=== PATIENT | male | born 1990 ===

== ENCOUNTER 2017-12-28 14:35 | Emergency (ER) | payer SELFPAY ==
[2017-12-28 14:45] VITALS: BP 116/73; PULSE 84; RESP 16; TEMP 96.9; O2SAT 99
[2017-12-28] MEDS ORDERED: Sodium Chloride 0.9% 1,000 ML IV STA ×2 (15:09→16:23)
[2017-12-28 15:42] LABS: ALB/GLOB RATIO 1.6 (1.0-2.1); ALBUMIN 5.3 g/dL (3.5-5.0); ALT/SGPT 30 U/L (21-72); AST/SGOT 47 U/L (17-59); BLOOD UREA NITROGEN 21 mg/dl (9-20); CALCIUM 10.3 mg/dL (8.4-10.2); GFR AFRICAN-AMERICAN > 60; GFR NON-AFRICAN AMERICAN > 60; LIPASE 54 U/L (23-300)
[2017-12-28 15:44] LABS: BASO # 0.1 K/uL (0.0-0.2); BASO % 0.4 % (0.0-2.0); EOS # 0.1 K/uL (0.0-0.7); EOS % 0.5 % (0.0-4.0); HEMOGLOBIN 15.4 g/dL (12.0-18.0); LYMPH # 1.9 K/uL (1.0-4.3); LYMPH % 15.5 % (20.0-40.0); MEAN CELL VOLUME 92.6 fl (80.0-94.0); MEAN CORPUSCULAR HEMOGLOBIN 30.7 pg (27.0-31.0); MEAN CORPUSCULAR HGB CONC 33.1 g/dL (33.0-37.0); MEAN PLATELET VOLUME 8.6 fl (7.2-11.7); MONO # 0.4 K/uL (0.0-0.8); MONO % 3.6 % (0.0-10.0); NEUT # 9.7 K/uL (1.8-7.0); RBC 5.01 Mil/uL (4.40-5.90); RED CELL DISTRIBUTION WIDTH 13.5 % (11.5-14.5); WHITE BLOOD COUNT 12.1 K/uL (4.8-10.8)
--- NOTE | 2017-12-28 16:19 | ED PDOC ---
HPI: Abdomen Time Seen by Provider: 12/28/17 14:56 Chief Complaint (Nursing): Abdominal Pain Chief Complaint (Provider): abdominal pain History Per: Patient History/Exam Limitations: no limitations Onset/Duration Of Symptoms: Days (x1) Current Symptoms Are (Timing): Still Present Location Of Pain/Discomfort: Epigastric Associated Symptoms: Nausea, Vomiting. denies: Fever, Chills, Diarrhea, Urinary Symptoms Additional Complaint(s): Ifeanyi Bello is a 27 year old male, with no significant past medical history, who presents to the emergency department complaining of epigastric pain associated with nausea and vomiting onset since last night. Patient admits to drinking alcohol and states symptoms began after drinking. He denies any fever, chills, diarrhea, urinary symptoms or abdominal surgeries. No further medical complaints. PMD: None provided. Past Medical History Reviewed: Historical Data, Nursing Documentation, Vital Signs Vital Signs: Last Vital Signs Temp 96.9 F L 12/28/17 14:43 Pulse 84 12/28/17 14:43 Resp 16 12/28/17 14:43 BP 116/73 12/28/17 14:43 Pulse Ox 99 12/28/17 19:11 - Medical History PMH: No Chronic Diseases - Surgical History Surgical History: No Surg Hx - Family History Family History: States: Unknown Family Hx - Social History Current smoker - smoking cessation education provided: Yes (Current some days smoker) Drugs: Cannabis - Home Medications Home Medications: Ambulatory Orders Medication Instructions Recorded Famotidine [Pepcid] 40 mg PO DAILY #20 tablet 12/28/17 Ondansetron ODT [Zofran ODT] 4 mg PO DAILY PRN #20 odt 12/28/17 - Allergies Allergies/Adverse Reactions: Allergies Allergy/AdvReac Type Severity Reaction Status Date / Time No Known Allergies Allergy Verified 12/28/17 14:43 Review of Systems ROS Statement: Except As Marked, All Systems Reviewed And Found Negative Constitutional: Negative for: Fever, Chills Gastrointestinal: Positive for: Nausea, Vomiting, Abdominal Pain (epigastric). Negative for: Diarrhea Genitourinary Male: Negative for: Dysuria, Frequency, Incontinence Physical Exam - Reviewed Nursing Documentation Reviewed: Yes Vital Signs Reviewed: Yes - Physical Exam Comments: GENERAL APPEARANCE: Patient is awake, alert, oriented x 3, in mild painful distress. SKIN: Warm, dry; (-) cyanosis. EYES: (-) conjunctival pallor, (-) scleral icterus. ENMT: Mucous membranes moist. NECK: (-) tenderness, (-) stiffness, (-) lymphadenopathy. CHEST AND RESPIRATORY: (-) rales, (-) rhonchi, (-) wheezes; breath sounds equal bilaterally. HEART AND CARDIOVASCULAR: (-) irregularity; (-) murmur, (-) gallop. ABDOMEN AND GI: (-) distention. Bowel sounds active; (+) Upper abdominal tenderness, (-) guarding, (-) rebound, (-) palpable masses, (-) CVA tenderness. EXTREMITIES: (-) deformity, (-) edema, (+) distal pulses. NEURO AND PSYCH: Mental status as above; (-) focal findings. - Laboratory Results Result Diagrams: 12/28/17 15:00 12/28/17 15:00 - ECG O2 Sat by Pulse Oximetry: 99 (RA) Pulse Ox Interpretation: Normal Medical Decision Making Medical Decision Making: Time: 14:56 Initial Impression: Abdominal pain Initial Plan: --Drug screen, urine --Pepcid 20 mg IVP --Sodium Chloride 1,000 ml IV 1,000 mls/hr x2 --Zofran Inj 4 mg IVP --Reevaluation On re-evaluation, patient reports significant improvement of symptoms, denies any abdominal pain or nausea. On exam, patient is more AAOx3, in no acute distress. Abdomen soft, non-tender, no guarding or rebound. VSS, stable for discharge. Lab results reviewed. Diagnostic results d/w the patient in great detail. Diagnosis of alcoholic gastritis d/w the patient. Based on history, exam and diagnostic results, plan will be for outpatient follow up. Patient instructed to follow-up with the clinic in 1-2 days without fail. Advised to take medication as prescribed. Return to the emergency room at any time for any new or worsening symptoms. Patient states he fully agrees with and understands discharge instructions. States that he agrees with the plan and disposition. Verbalized and repeated discharge instructions and plan. I have given the patient opportunity to ask any additional questions. ----- Scribe Attestation: Documented by Juan Carlos Schneider, acting as a scribe for Brandy aWrren PA-C. Provider Scribe Attestation: All medical record entries made by the Scribe were at my direction and personally dictated by me. I have reviewed the chart and agree that the record accurately reflects my personal performance of the history, physical exam, medical decision making, and the department course for this patient. I have also personally directed, reviewed, and agree with the discharge instructions and disposition. Disposition - Clinical Impression Clinical Impression: Alcoholic gastritis - Patient ED Disposition Is Patient to be Admitted: No Counseled Patient/Family Regarding: Studies Performed, Diagnosis, Need For Followup, Rx Given - Disposition Referrals: [facility] [Outside] Disposition: Routine/Home Disposition Time: 19:00 Condition: STABLE Additional Instructions: Thank you for letting us take care of you today. You were treated for alcoholic gastritis. The emergency medical care you received today was directed towards the acute presenting symptoms. If you were prescribed any medication, please fill it and give as directed. It may take several days for your symptoms to resolve. Return to the Emergency Department at any time if symptoms worsen, do not improve, or if any other problems arise. Please call one of the physicians/clinics you have been referred to that are listed on the Patient Visit Information form that is included in your discharge packet. Bring any paperwork you were given at discharge with you along with any medications to your follow up visit. Our treatment cannot replace ongoing medical care by a primary care provider (PCP) outside of the emergency department. [facility]. Prescriptions: Famotidine [Pepcid] 40 mg PO DAILY #20 tablet Ondansetron ODT [Zofran ODT] 4 mg PO DAILY PRN #20 odt PRN Reason: Nausea/Vomiting Instructions: Gastritis (DC) Forms: [employer] (Frisian)
[2017-12-28 16:50] LABS: BARBITURATES, UR NEGATIVE (NEGATIVE); BENZODIAZEPINES, UR NEGATIVE (NEGATIVE); OPIATES, UR NEGATIVE (NEGATIVE); PHENCYCLIDINE, UR NEGATIVE (NEGATIVE)
== END 2017-12-28 19:27 | disposition home or self-care (01) ==
LOC: H.ER 14:35
DX: K29.20 Alcoholic gastritis without bleeding (principal); F17.200 Nicotine dependence, unspecified, uncomplicated
CPT/HCPCS: 80053; 83690; 85025; 96374; 96375; 99284; G0480; J2405; J7030